=== PATIENT | male | born 1950 ===

== ENCOUNTER → 2018-03-19 11:49 | Day surgery (SDC) | payer MEDICARE, MEDICAID ==
[~2018-03-19 11:49] MED LIST: Clindamycin 900 MG IVPREMIX(* 900 MG/50 ML SDV IV ONE; Flumazenil* 0.1 MG/ML 5 ML MDV ONE; Lidocaine 1% INJ* 10 MG/ML 30 ML SDV ONE; Midazolam* 1 MG/ML 5 ML VIAL (5 MG) ONE; Naloxone* 0.4 MG/ML 1 ML VIAL ONE; fentaNYL* 50 MCG/ML 2 ML VIAL (100 MCG VIAL) ONE
--- NOTE | 2018-03-20 00:53 | OP ---
CC: Dr. Edwards OPERATIVE REPORT: DATE OF OPERATION: 03/19/18 DATE OF : 52 SURGEON: Gautam Michel MD. ANESTHESIA: Local anesthesia with conscious sedation. 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 OPERATIVE PROCEDURE: Dual-chamber pacemaker generator change. ESTIMATED BLOOD LOSS: Nil. COMPLICATIONS: None. INDICATIONS: The patient is a 67-year-old gentleman with a history of AV block. He had a pacemaker i mplanted in April 2009. He has been followed by Dr. Edwards. The patient's pacemaker has reached elect lula replacement indicator. DESCRIPTION OF PROCEDURE: The patient was brought to the procedure room in a fasting state. Informe d consent had been obtained prior to the procedure. All labs have been reviewed. The patient was pl aced supine on the procedure table. His left deltopectoral area was cleaned and draped in the usual f ashion. A 1% lidocaine was used for local anesthesia. A 4-cm incision was made in the previous inci denton line and blunt dissection was carried on to the fiber sheath. The fiber sheath was opened and t he pacemaker was removed. The patient was detached from the atrioventricular lead. A new generator was attached appropriately to the atrioventricular lead. The pocket was flushed with normal saline a nd the device was placed back into the pocket. The surgical incision was closed in 3 layers. The [facility] ient's explanted device is a [employer] model ADDR01, serial number [id number]. The new device is a Super[employer]rupertr[employer] model ADDR01, serial number [id number]. The patient's atrial and ventricular leads were tested and noted to be functioning normally. [id number]/[facility] #: [id number]
== END | disposition home or self-care (01) ==
LOC: CHICATH 11:49
PROVIDERS: ATTEND Specialist
DX: I49.5 Sick sinus syndrome (principal); R55 Syncope and collapse; I10 Essential (primary) hypertension; E66.9 Obesity, unspecified; Z95.0 Presence of cardiac pacemaker
CPT/HCPCS: 33228; 88300; 99156; 99157; C1785; J2250; J2310; J3010